=== PATIENT | male | born 1960 | race Caucasian/White ===

== ENCOUNTER 2017-04-10 01:14 | Emergency (ER) | payer BC, OTHER ==
[2017-04-10] MEDS ORDERED: MECLIZINE HCL 25 MG TABLET (FP) PO ONE (01:21)
[2017-04-10] MEDS ORDERED: ONDANSETRON *ODT* 4 MG TABLET SL ONE (01:21)
--- NOTE | 2017-04-10 01:21 | PDOC ---
History of Present Illness - General Chief Complaint: Lightheaded Stated Complaint: DIZZY/LIGHTHEADED Time Seen by Provider: 04/10/17 01:20 History Source: Patient Exam Limitations: No Limitations - History of Present Illness Initial Comments: 04/10/17 01:35 This is a 56-year-old male who comes in complaining of being woken up out of sleep with vertigo. Patient has history of vertigo in the past. However patient said that this time it is a little worse than usual. Patient is feeling nausea use but no vomiting. Patient said that every time he moves his head it feels like the room is spinning. Patient denies any tinnitus or ringing in his ears but says there is a buzzing in his ears patient. Has a history of a recent viral illness. Patient otherwise denies any current fevers, cough, congestion. Patient denies any numbness weakness or focal neurological complaints. Patient is otherwise healthy and denies history of hypertension but does have history of high cholesterol. PAST MEDICAL HISTORY: no significant history PAST SURGICAL HISTORY: no significant history FAMILY HISTORY: no pertinant history SOCIAL HISTORY: Pt lives with family and is employed. MEDICATIONS: reviewed ALLERGIES: As per nursing notes Review of Systems General: No fevers or chills, no weakness, no weight loss HEENT: No change in vision. No sore throat,. No ear pain CardioVascular: No chest pain or shortness of breath Respiratory:No cough, or wheezing. Gastrointestinal: no nausea, vomitting, diarrhea or constipation, No rectal bleeding Genitourinary: No dysuria, hematuria, or frequency Musculoskeletal: No joint or muscle pain or swelling Neurologic: No headache, vertigo, dizziness or loss of consciousness Psychiatric: nor depression Skin: No rashes or easy bruising Endocrine: no increased thirst or abnormal weight change Allergic: no skin or latex allergy All other systems reviewed and normal Exam: General: Well-nourished well-developed individual, no acute distress HEENT: Throat: Normal, tonsils normal, no erythema or exudate Neck: Supple, no meningeal signs, no lymphadenopathy Ears: Tympanic membranes are normal bilateral Eyes::Pupils equal reactive and round, extraocular motion intact Chest: Nontender to palpation Neuro: Alert and oriented x3, CN II - XII intact, nonfocal exam with normal strength, normal sensation, normal reflexes, normal gait, Psych: Normal mood and affect Medical decision making: This is a 56-year-old male who comes in complaining of acute onset of vertigo. Patient's vertigo most likely secondary to an Carlos and upper respiratory tract infection however he also does have history of vertigo in the past. There is no evidence of acute stroke and no focal neurological deficits Will medicate with meclizine and Zofran for the nausea chemistry technician called and will do a head CT Will reassess and review results of head CT 04/10/17 02:[address] was negative for any acute intercranial pathology mass bleed or lesions. Patient's head CT did show chronic ethmoid sinusitis Post meclizine and Zofran patient feels much better vertigo is much improved but not completely resolved. Assessment and plan: This is a 56-year-old male who comes in complaining of acute onset of vertigo. Patient had a renal cyst and upper respiratory tract infection and has some buzzing in his left ear. Patient was given meclizine here with improvement of his symptoms and a CAT scan was done and interpreted as negative by imaging windows application packager. Prescriptions for meclizine and Zofran were sent patient's pharmacy Patient's is with him and will drive him home patient discharged home. Past History - Past Medical History Allergies/Adverse Reactions: Allergies Allergy/AdvReac Type Severity Reaction Status Date / Time No Known Allergies Allergy Verified 04/10/17 01:18 Home Medications: Ambulatory Orders Atorvastatin Ca [Lipitor] 10 mg PO HS 04/10/17 Levothyroxine [Synthroid -] 125 mcg PO DAILY 04/10/17 Meclizine HCl [Antivert -] 25 mg PO QID #28 tablet 04/10/17 Ondansetron [Zofran *Odt*] 8 mg SL TID #12 od.tablet 04/10/17 *DC/Admit/Observation/Transfer Diagnosis at time of Disposition: Acute labyrinthitis Qualifiers: Laterality: unspecified laterality Qualified Code(s): H83.09 - Labyrinthitis, unspecified ear - Discharge Dispostion Disposition: HOME Condition at time of disposition: Stable Admit: No - Prescriptions Prescriptions: Meclizine HCl [Antivert -] 25 mg PO QID #28 tablet Ondansetron [Zofran *Odt*] 8 mg SL TID #12 od.tablet - Referrals Referrals: Alesha Tirado MD [Primary Care Provider] - - Patient Instructions Printed Discharge Instructions: DI for Benign Paroxysmal Positional Vertigo Additional Instructions: For nausea take Zofran 1 tablet as often as 3 times a day let it dissolve under your tongue. For the vertigo spinning sensation take meclizine 1 tablet as often as every 4- 6 hours if needed. Return to the emergency department immediately with ANY new, persistent or worsening symptoms. Continue any medications as previously prescribed by your physician. You should follow up with your primary doctor as soon as possible regarding today's emergency department visit. . Please make sure your doctor reviews the results of your emergency evaluation. Thank you for coming to the Emergency Department today for your care. It was a pleasure to see you today. Please note that your evaluation is INCOMPLETE until you follow-up with your doctor. - Post Discharge Activity
[2017-04-10 01:32] VITALS: BP 144/88; PULSE 70; TEMP 97.7; BMI 29.2
== END 2017-04-10 02:39 | disposition home or self-care (01) ==
LOC: SUPCPDRO 01:14 → FER 01:14
DX: H83.09 Labyrinthitis, unspecified ear (principal); E78.00 Pure hypercholesterolemia, unspecified
CPT/HCPCS: 70450-TC; 99281-25

== ENCOUNTER 2017-08-29 19:07 | Emergency (ER) | payer BC ==
--- NOTE | 2017-08-29 19:11 | PDOC ---
History of Present Illness - General History Source: Patient, Spouse Exam Limitations: No Limitations - History of Present Illness Initial Comments: 08/29/17 20:00 The patient is a 57 year old male with a significant past medical history of hypothyroidism (synthroid) and hyperlipidemia (Lipitor) who presents to the emergency department for evaluation of generalized weakness. The patient reports a 3 day history of generalized weakness with associated body aches. The patient reports multiple episodes of diffuse body soreness. He states his pain fluctuates from a 9/10 to a 5/10 in severity, without any intervention, and is present at rest and during physical activity. He reports intermittent episodes of fever, last noted T Max 100.5, 2 days ago, which has since resolved with Naproxen. Today, the patient reports intermittent episodes of shortness of breath with exertion and at rest. The patient is very active male who frequently fishes(last known, 2 weeks ago) and exercises at the gym. He denies any rash, insect bites, or embedded ticks in the last month. The patient states he had one brief episode of double vision 2 days ago (resolved in minutes) and reports difficulty trying to lift a 5lb dumbbell today (able to do with ease at baseline), which prompted his visit to the emergency department for further evaluation. The patient reports mild throat pain and an associated non- productive cough after taking antibiotics a month ago for a throat abscess and cough. He reports following up with an ENT specialist (Dr. Hunter) who prescribed Omeprazole (40mg,2x daily), which the patient state he has been taking for 2 weeks. Of note, the patient admits stopping his course of Omeprazole for 2 days. The patient denies history of Lymes disease, chest pain, abdominal pain, headache, and dizziness. Denies chills, nausea, vomiting, diarrhea, and constipation. Denies dysuria, frequency, urgency, and hematuria. Denies recent travel. Allergies: NKA Social history: Former smoker. No reported alcohol consumption or drug use. PCP: Dr. Alesha Tirado <Guru Hernández - Last Filed: 08/29/17 20:12> <Cesilia Matute - Last Filed: 08/30/17 00:28> - General Chief Complaint: Pain Stated Complaint: MUSCULAR PAIN Time Seen by Provider: 08/29/17 19:09 Past History <Guru Hernández - Last Filed: 08/29/17 20:12> - Past Medical History COPD: No Hypercholesterolemia: Yes Thyroid Disease: Yes - Suicide/Smoking/Psychosocial Hx Smoking History: Never smoked Have you smoked in the past 12 months: No Hx Alcohol Use: No Drug/Substance Use Hx: No Substance Use Type: None <Cesilia Matute - Last Filed: 08/30/17 00:28> - Past Medical History Allergies/Adverse Reactions: Allergies Allergy/AdvReac Type Severity Reaction Status Date / Time No Known Allergies Allergy Verified 04/10/17 01:18 Home Medications: Ambulatory Orders Atorvastatin Ca [Lipitor] 10 mg PO HS 04/10/17 Levothyroxine [Synthroid -] 125 mcg PO DAILY 04/10/17 Meclizine HCl [Antivert -] 25 mg PO QID #28 tablet 04/10/17 Ondansetron [Zofran *Odt*] 8 mg SL TID #12 od.tablet 04/10/17 Review of Systems - Review of Systems Able to Perform ROS?: Yes Comments:: All systems are reviewed and negative except as noted in the HPI. <Guru Hernández - Last Filed: 08/29/17 20:12> *Physical Exam - Vital Signs Last Vital Signs Temp Pulse Resp BP Pulse Ox 98.8 F 77 16 177/109 98 08/29/17 19:08 08/29/17 19:08 08/29/17 19:08 08/29/17 19:08 08/29/17 19:08 - Physical Exam Comments: GENERAL: The patient is awake, alert, and fully oriented, in no acute distress. HEAD: Normal with no signs of trauma. EYES: Pupils equal, round and reactive to light, extraocular movements intact, sclera anicteric, conjunctiva clear. EXTREMITIES: Normal range of motion, no edema. NEUROLOGICAL: Normal speech, normal gait. PSYCH: Normal mood, normal affect. SKIN: Warm, Dry, normal turgor, no rashes or lesions noted. <AddisonbibianaGuru - Last Filed: 08/29/17 20:12> ED Treatment Course - LABORATORY CBC & Chemistry Diagram: 08/29/17 19:50 08/29/17 19:50 <Guru Hernández - Last Filed: 08/29/17 20:12> - LABORATORY CBC & Chemistry Diagram: 08/29/17 19:50 08/29/17 19:50 <GiovaniCesilia Bettei - Last Filed: 08/30/17 00:28> Medical Decision Making - Medical Decision Making Documentation has been prepared under my direction and personally reviewed by me in its entirety. I attest that this documented accurately reflects all work, treatment, procedures and medical decision making performed by me. As noted above, this 57-year-old man with a history of hyperlipidemia (and mild hypothyroidism) presents with a few day history of muscle aches and possible mild muscle weakness. He also had one episode of low grade fever (100F orally ) a few days ago. No other symptoms noted except for generalized fatigue. Of note, patient was started on omeprazole approximately 2 weeks ago for GERD; he has been on low-dose (10 mg) simvastatin for many years. Exam as noted, is normal. The patient and his are concerned, because although these symptoms began only a few days ago, he had read that concurrent use of statin drug and omeprazole may result in muscle damage. Basic labs of CBC and chemistry profile rhythm revealed a normal CBC; chemistry profile notable for mild prerenal azotemia with BUN of 20 and creatinine of 1.1. There is evidence of some inflammatory response of his muscles with total CK of 1040. No other significant abnormalities in electrolytes (including magnesium)/renal function/liver function tests. Lyme titers were also sent because patient is frequently outside while fishing; areas were patient fishes is endemic for Lyme disease. Patient was given 1 L normal saline while laboratory evaluation was completed. Results discussed with the patient. Although there is laboratory suggestion that there is some muscle inflammation/damage, this is nonspecific and could be related to self-limited processes such as viral syndrome. Tickborne disease could also cause elevation of CK; baseline titers have been sent. Other reasons for myositis, such as medication related and autoimmune disease could be present but would require next level of investigation. This was explained to the patient and his and they understand that this would be done by his PMD. Of note, patient stopped omeprazole himself a few days ago. He admits that he takes 10 mg of simvastatin every other day for several months, tapering the dose himself. Patient will be discharged with instructions to rest and drink plenty of fluids. Patient contact their PMD, to arrange follow-up within the 5- 7 days. If he develops worsening pain, worsening weakness or fever, he should return to the ER. <Cesilia Matute - Last Filed: 08/30/17 00:28> *DC/Admit/Observation/Transfer - Attestations Scribe Attestion: Documentation prepared by Guru Hernández, acting as durable medical equipment technician for Cesilia Matute MD. <Guru Hernández - Last Filed: 08/29/17 20:12> <Cesilia Matute - Last Filed: 08/30/17 00:28> Diagnosis at time of Disposition: Myalgia and myositis, unspecified - Discharge Dispostion Disposition: HOME Condition at time of disposition: Stable - Referrals Referrals: ON STAFF,NOT [Primary Care Provider] - Alesha Tirado MD [Staff Physician] - 1 week - Patient Instructions Printed Discharge Instructions: DI for Muscle Weakness Additional Instructions: Rest; drink plenty of fluids Avoid strenuous physical activity for the next several days Follow-up with within 5-7 days Return here or see your doctor sooner if muscle pain/weakness worsens - Post Discharge Activity
[2017-08-29] MEDS ORDERED: SODIUM CHLORIDE 1,000 ML IV STA (19:42)
[2017-08-29 19:50] VITALS: PULSE 77; TEMP 98.8; BMI 29.2
[2017-08-29 20:15] LABS: BASO % 0.3 % (0-2.0); EOS % 2.3 % (0-4.5); HEMATOCRIT 42.7 % (35.4-49); HEMOGLOBIN 14.7 GM/dl (11.7-16.9); LYMPH % 34.7 % (8-40); MCH 30.5 pg (25.7-33.7); MCHC 34.4 g/dl (32.0-35.9); MEAN CELL VOLUME 88.8 fl (80-96); MEAN PLT VOLUME 8.1 fl (7.5-11.1); NEUT % 53.7 % (42.8-82.8); PLATELET COUNT 245 K/MM3 (134-434); RBC 4.81 M/mm3 (4.00-5.60); RDW 12.2 % (11.9-15.9); WHITE BLOOD COUNT 6.4 K/mm3 (4.0-10.8)
[2017-08-29 20:24] LABS: ALBUMIN 4.2 g/dl (3.5-5.0); ALK PHOS 56 U/L (32-92); ANION GAP 8 (8-16); BLOOD UREA NITROGEN 20 mg/dl (7-18); CALCIUM 9.3 mg/dl (8.4-10.2); CHLORIDE 103 mmol/L (98-107); CO2 28 mmol/L (22-28); CREATININE 1.1 mg/dl (0.6-1.3); GLUCOSE,RANDOM 93 mg/dl (74-106); POTASSIUM 4.2 mmol/L (3.5-5.1); SGOT/AST 51 U/L (10-42); SGPT/ALT 29 U/L (10-40); SODIUM 139 mmol/L (136-145)
[2017-08-29 20:25] LABS: BILIRUBIN,TOTAL < 0.5 mg/dl (0.2-1.0)
[2017-08-29 20:28] VITALS: BP 132/87
== END 2017-08-29 21:45 | disposition home or self-care (01) ==
LOC: FER 19:07
PROC: 3E0337Z Introduction of Electrolytic and Water Balance Substance into Peripheral Vein, Percutaneous Approach (ICD-10-PCS; principal; 2017-08-29)
DX: M60.9 Myositis, unspecified (principal); E78.5 Hyperlipidemia, unspecified; E03.9 Hypothyroidism, unspecified
CPT/HCPCS: 36415; 80053; 82550; 82553; 83735; 85025; 86618; 99283-25; J7030